=== PATIENT | female | born 1965 | race Caucasian/White ===

== ENCOUNTER 2022-11-22 08:00 | Emergency (ER) | payer OTHER, SELFPAY ==
[2022-11-22 08:08] VITALS: BP 143/92; PULSE 84; RESP 18; TEMP 36.1; O2SAT 97; BMI 33.3
--- NOTE | 2022-11-22 08:18 | PC.NURSE ---
PT C/O LOW BACK PAIN THAT RADIATES TO PELVIS. DENIES INJURY. DENIES URINARY ISSUES. DENIES VAGINAL DISCHARGE OR FOUL ODOR
--- NOTE | 2022-11-22 08:21 | ED_ITS ---
HPI - General Adult General Chief complaint: Urogenital-Female Stated complaint: PELVIC/BACK PAIN/HEADACHE/NAUSEA Time Seen by Provider: 11/22/22 08:07 Source: patient Mode of arrival: walk-in Limitations: no limitations History of Present Illness HPI narrative: 57-year-old female presents for several complaints. She is complaining of lower back pain for the last few days without any associated trauma or unusual activity. It may been a bit worse on the left than thee right. No gross hematuria or dysuria. She also complains of a headache and nausea that started today and the headache is at the top of her head. Again no trauma. The lower back pain seems to wrap around towards her front. No vomiting or diarrhea or constipation and no vaginal discharge or odor. Related Data Previous Rx's Medication Instructions Recorded acetaminophen 300 mg-codeine 30 mg 1 tab PO Q6H PRN pain 5 days #20 11/22/22 tablet tabs cyclobenzaprine 10 mg tablet 10 mg PO TID PRN muscle spasm #20 11/22/22 tabs ibuprofen 800 mg tablet 800 mg PO Q8H PRN pain #20 tabs 11/22/22 Allergies Allergy/AdvReac Type Severity Reaction Status Date / Time No Known Drug Allergies Allergy Verified 11/22/22 08:08 Review of Systems ROS Narrative A ten point review of systems is negative except as noted above. PFSH PFSH Social History Smoking status: Never smoker Exam Narrative Exam Narrative: Nurses note and vital signs reviewed and patient is not hypoxic. General: The patient appears well and in no apparent distress. Patient is resting comfortably on cart. Skin: Warm, dry, no pallor noted. There is no rash noted. Head: Normocephalic, atraumatic Eye: Normal conjunctiva, no drainage Ears, Nose, Mouth, and Throat: oral mucosa is moist. Nares patent. Mouth without vesicles. Ear canals patent. Tm's without Erythema Cardiovascular: Regular Rate and Rhythm Respiratory: Patient is in no distress, no accessory muscle use, lungs are clear to auscultation, no wheezing, rales or rhonchi Back: non-tender, no CVA tenderness bilaterally to percussion. no bruise or rash on her back GI: no tenderness to palpation, no masses appreciated. No rebound, guarding, or rigidity noted. Musculoskeletal: The patient has no evidence of calf tenderness, no pitting edema, symmetrical pulses noted bilaterally Neurological: A&O normal speech Psychiatric: Cooperative Constitutional Vital Signs, click to edit/add: Last Vital Signs Temp 97 F L 11/22/22 08:08 Pulse 84 11/22/22 08:08 Resp 18 11/22/22 08:08 BP 143/92 H 11/22/22 08:08 Pulse Ox 97 11/22/22 08:08 O2 Del Method Room Air 11/22/22 08:08 Course Vital Signs Vital signs: Vital Signs Temperature 97 F L 11/22/22 08:08 Pulse Rate 84 11/22/22 08:08 Respiratory Rate 18 11/22/22 08:08 Blood Pressure 143/92 H 11/22/22 08:08 Pulse Oximetry 97 11/22/22 08:08 Oxygen Delivery Method Room Air 11/22/22 08:08 Temperature 97 F L 11/22/22 08:08 Pulse Rate 84 11/22/22 08:08 Respiratory Rate 18 11/22/22 08:08 Blood Pressure 143/92 H 11/22/22 08:08 Pulse Oximetry 97 11/22/22 08:08 Oxygen Delivery Method Room Air 11/22/22 08:08 Medical Decision Making MDM Narrative Medical decision making narrative: her workup including blood work, urinalysis, and CAT scan is negative. She'll be discharged home and will be treated symptomatically. Treatment diagnosis and follow-up were discussed with the patient. Differential Diagnosis Differential Diagnosis: urinary tract infection, kidney stone, diverticulitis Lab Data Lab results reviewed: Yes I reviewed the patient's lab results Labs: Lab Results 11/22/22 11/22/22 Range/Units 08:24 08:40 WBC 5.9 (4.0-11.0) 10^3/uL RBC 3.88 L (4.20-5.40) 10^6/uL Hgb 12.1 (12.0-16.0) g/dL Hct 35.7 L (36.0-48.0) % MCV 92.0 (81.0-99.0) fL MCH 31.2 (26.7-34.0) pg MCHC 33.9 (29.9-35.2) g/dL RDW 12.1 (11.0-15.0) % Plt Count 322 (150-450) 10^3/uL MPV 9.4 L (9.5-13.5) fL Neut % (Auto) 57.1 (43.0-75.0) % Lymph % (Auto) 29.1 (20.5-60.0) % [place] % (Auto) 6.9 (1.7-12.0) % Eos % (Auto) 5.7 (0.9-7.0) % Baso % (Auto) 1.0 (0.2-2.0) % Neut # (Auto) 3.4 (1.4-6.5) 10^3/uL Lymph # (Auto) 1.7 (1.2-3.8) 10^3/uL [place] # (Auto) 0.4 (0.3-0.8) 10^3/uL Eos # (Auto) 0.3 (0.0-0.7) 10^3/uL Baso # (Auto) 0.1 (0.0-0.1) 10^3/uL Abs Immat Gran (auto) 0.01 (0.00-0.03) 10^3/uL Imm/Tot Granulo (auto) 0.2 (0.0-0.5) % Sodium 139 (136-145) mmol/L Potassium 3.9 (3.5-5.1) mmol/L Chloride 105 (98-107) mmol/L Carbon Dioxide 23.8 (21.0-32.0) mmol/L Anion Gap 14.1 BUN 14.0 (7.0-18.0) mg/dL Creatinine 0.90 (0.55-1.02) mg/dL Est GFR ( Amer) >60 (>=60) Est GFR (Non-Af Amer) >60 (>=60) BUN/Creatinine Ratio 15.6 Glucose 107 H (74-106) mg/dL Calcium 9.0 (8.5-10.1) mg/dL Urine Color Yellow (YELLOW) Urine Clarity Clear (CLEAR) Urine pH 6.0 (5.0-9.0) Ur Specific [place] 1.025 (1.005-1.025) Urine Protein Negative (NEG/TRACE) mg/dL Urine Glucose (UA) Negative (NEGATIVE) mg/dL Urine Ketones Negative (NEGATIVE) mg/dL Urine Occult Blood Small A (NEGATIVE) Urine Nitrite Negative (NEGATIVE) Urine Bilirubin Negative (NEGATIVE) Urine Urobilinogen 0.2 (0.2-1.0) EU/dL Ur Leukocyte Esterase Negative (NEGATIVE) Urine RBC 2-5 A (0-2) #/HPF Urine WBC None seen (NONE SEEN) #/HPF Ur Squamous Epith Cells Few A (NONE/RARE) #/LPF Urine Crystals None seen (None Seen) #/HPF Urine Bacteria Trace A (NONE SEEN) #/HPF Urine Casts None seen (NONE SEEN) #/LPF Urine Mucus None seen (NONE SEEN) Imaging Data CT scan - abdomen: Radiologist's impression: Procedure: CT abdomen pelvis w con EXAMINATION: CT abdomen pelvis w con HISTORY: low abd pain , low back pain radiating into pelvis COMPARISON: CT chest abdomen pelvis 05/15/2011 TECHNIQUE: Axial, Coronal, and Sagittal images were obtained without and/or with IV contrast as indicated by examination type. Dose reduction techniques were achieved by using automated exposure control and/or adjustment of mA and/or kV according to patient size and/or use of iterative reconstruction technique. FINDINGS: LUNG BASES: No visible pulmonary or pleural disease. LIVER: Mild fatty infiltration. No enlargement, atrophy, suspicious density, or significant focal lesion. BILIARY: Cholecystectomy. PANCREAS: No lesion, fluid collection, or abnormal duct dilatation. SPLEEN: No enlargement or focal lesion. ADRENALS: No mass or enlargement. KIDNEYS: No mass, obstruction, or calcification. BOWEL/MESENTERY: No visible mass, obstruction, or bowel wall thickening. AORTA/VASCULAR: No aneurysm or dissection. RETROPERITONEUM: No mass or adenopathy. LYMPH NODES: No adenopathy. URINARY BLADDER: No visible focal wall thickening, lesion, or calculus. PELVIC ORGANS: No visible mass. Pelvic organs appropriate for patient age. ABDOMINAL WALL: No mass or hernia. BONES: Mild disc space narrowing L3-4, L4-5. OTHER: Negative. IMPRESSION: 1. No acute or suspicious findings to account for patient's symptoms. 2.Minimal degenerative changes of lower lumbar spine. Electronically authenticated by: NATALIE LUCAS Date: 11/22/2022 10:33 Discharge Plan Discharge Chief Complaint: Urogenital-Female Clinical Impression: Low back pain Patient Disposition: Home, Self-Care Time of Disposition Decision: 10:49 Condition: Good Mode of Transportation: Private Vehicle Prescriptions / Home Meds: New acetaminophen-codeine 300-30 mg tablet 1 tab PO Q6H PRN (Reason: pain) 5 Days Qty: 20 0RF cyclobenzaprine 10 mg tablet 10 mg PO TID PRN (Reason: muscle spasm) Qty: 20 0RF ibuprofen 800 mg tablet 800 mg PO Q8H PRN (Reason: pain) Qty: 20 0RF Instructions: Back Pain (ED) Stand Alone Forms: Portal Instructions Referrals: ELENO DEAN [Primary Care Provider] - 1 week
[2022-11-22 08:43] LABS: Basophils Absolute Auto 0.1 10^3/uL (0.0-0.1); Eosinophils Absolute Auto 0.3 10^3/uL (0.0-0.7); Eosinophils Percent Auto 5.7 % (0.9-7.0); Hematocrit 35.7 % (36.0-48.0); Hemoglobin 12.1 g/dL (12.0-16.0); Immature Granulocytes Abs Auto 0.01 10^3/uL (0.00-0.03); Immature Granulocytes Pct Auto 0.2 % (0.0-0.5); Lymphocytes Absolute Auto 1.7 10^3/uL (1.2-3.8); Lymphocytes Percent Auto 29.1 % (20.5-60.0); Mean Corpuscular HGB Conc 33.9 g/dL (29.9-35.2); Mean Corpuscular Hemoglobin 31.2 pg (26.7-34.0); Mean Platelet Volume 9.4 fL (9.5-13.5); Monocytes Absolute Auto 0.4 10^3/uL (0.3-0.8); Monocytes Percent Auto 6.9 % (1.7-12.0); Neutrophils Absolute Auto 3.4 10^3/uL (1.4-6.5); Neutrophils Percent Auto 57.1 % (43.0-75.0); Platelet Count 322 10^3/uL (150-450); Red Blood Count 3.88 10^6/uL (4.20-5.40); Red Cell Distribution Width 12.1 % (11.0-15.0); White Blood Count 5.9 10^3/uL (4.0-11.0)
[2022-11-22] MEDS: KETOROLAC TROMETHAMINE 30 MG/ML VIAL IVP (08:44)
[2022-11-22] MEDS: ONDANSETRON PF 4 MG/2 ML VIAL IV (08:44)
[2022-11-22 08:49] LABS: Anion Gap 14.1; BUN Creatinine Ratio 15.6; Carbon Dioxide 23.8 mmol/L (21.0-32.0); Chloride 105 mmol/L (98-107); Estimated GFR (African America >60 (>=60); Estimated GFR (Non-African Ame >60 (>=60); Glucose 107 mg/dL (74-106); Potassium 3.9 mmol/L (3.5-5.1); Sodium 139 mmol/L (136-145)
[2022-11-22 09:23] LABS: Bilirubin Urine NEGATIVE (NEGATIVE); Blood Urine SMALL (NEGATIVE); Clarity Urine CLEAR (CLEAR); Color Urine YELLOW (YELLOW); Glucose Urine UA NEGATIVE (NEGATIVE); Ketones Urine NEGATIVE (NEGATIVE); Leukocyte Esterase Urine NEGATIVE (NEGATIVE); Nitrite Urine NEGATIVE (NEGATIVE); Protein Urine NEGATIVE (NEG/TRACE); Specific Gravity Urine 1.025 (1.005-1.025); Urobilinogen Urine 0.2 EU/dL (0.2-1.0)
[2022-11-22 09:33] LABS: Bacteria Urine TRACE #/HPF (NONE SEEN); WBC Urine NONE SEEN #/HPF (NONE SEEN)
[2022-11-22 09:34] LABS: Cast Seen? NONE SEEN #/LPF (NONE SEEN); Crystals Seen? None Seen #/HPF (None Seen); Mucus Urine NONE SEEN (NONE SEEN); Squamous Epithelial Cell Urine FEW #/LPF (NONE/RARE)
--- NOTE | 2022-11-22 09:41 | CT_ITS ---
[address] [address] Patient Name: KYLAH MENENDEZ MRN: [id number] date: 1965 Sex: F Assigned Patient Location: ER Current Patient Location: Accession/Order Number: [id number] Exam Date: 11/22/2022 10:01 Report Date: 11/22/2022 10:33 At the request of: KELVIN DIAZ Procedure: CT abdomen pelvis w con EXAMINATION: CT abdomen pelvis w con HISTORY: low abd pain , low back pain radiating into pelvis COMPARISON: CT chest abdomen pelvis 05/15/2011 TECHNIQUE: Axial, Coronal, and Sagittal images were obtained without and/or with IV contrast as indicated by examination type. Dose reduction techniques were achieved by using automated exposure control and/or adjustment of mA and/or kV according to patient size and/or use of iterative reconstruction technique. FINDINGS: LUNG BASES: No visible pulmonary or pleural disease. LIVER: Mild fatty infiltration. No enlargement, atrophy, suspicious density, or significant focal lesion. BILIARY: Cholecystectomy. PANCREAS: No lesion, fluid collection, or abnormal duct dilatation. SPLEEN: No enlargement or focal lesion. ADRENALS: No mass or enlargement. KIDNEYS: No mass, obstruction, or calcification. BOWEL/MESENTERY: No visible mass, obstruction, or bowel wall thickening. AORTA/VASCULAR: No aneurysm or dissection. RETROPERITONEUM: No mass or adenopathy. LYMPH NODES: No adenopathy. URINARY BLADDER: No visible focal wall thickening, lesion, or calculus. PELVIC ORGANS: No visible mass. Pelvic organs appropriate for patient age. ABDOMINAL WALL: No mass or hernia. BONES: Mild disc space narrowing L3-4, L4-5. OTHER: Negative. CT/CT abdomen pelvis w con IMPRESSION: 1. No acute or suspicious findings to account for patient's symptoms. 2.Minimal degenerative changes of lower lumbar spine. Electronically authenticated by: NATALIE LUCAS Date: 11/22/2022 10:33
[2022-11-22] MEDS: MORPHINE SULFATE 4 MG/ML VIAL IV (09:42)
== END 2022-11-22 11:06 | disposition home or self-care (01) ==
PROVIDERS: Emergency Provider Emergency Medicine; PCP Family Medicine
DX: M54.50 Low back pain, unspecified (principal)
CPT/HCPCS: 36415; 74177; 80048; 81001; 85025; 96374; 96375; 99285; Q9967